=== PATIENT | male | born 1945 | race Hispanic/Latino ===

== ENCOUNTER 2019-08-14 14:09 | Emergency (ER) | payer MEDICARE, OTHER ==
[2019-08-14 15:02] LABS: Bilirubin,Urine NEG (Negative); Blood,Urine NEG (Negative); Color,Urine Yellow (Yellow); Protein,Urine <15 mg/dL mg/dL (Negative); Urobilinogen,Urine < 2.0 mg/dL (<2.0)
[2019-08-14 15:09] LABS: Alanine Aminotransferase 16 units/L (7-56); Albumin 4.1 g/dL (3.9-5); BUN/Creatinine Ratio 13; Blood Urea Nitrogen 10 mg/dL (9-20); Calcium 8.9 mg/dL (8.4-10.2); Hemolysis Index 10
[2019-08-14 15:14] LABS: Hematocrit 46.3 % (35.5-45.6); Hemoglobin 15.6 gm/dl (11.8-15.2); Mean Corpuscular HGB Conc 34 % (32-34); Mean Corpuscular Volume 97 fl (84-94); Platelet Count 273 K/mm3 (140-440); Red Blood Count 4.79 M/mm3 (3.65-5.03); Red Cell Distribution Width 14.4 % (13.2-15.2)
--- NOTE | 2019-08-14 15:21 | Emergency Department Report ---
ED Abdominal Pain HPI - General Chief Complaint: Abdominal Pain Stated Complaint: ABD/BACK PAIN Time Seen by Provider: 08/14/19 15:19 Source: patient Mode of arrival: Ambulatory Limitations: No Limitations - History of Present Illness Initial Comments: 74-year-old -[place] male patient with history of heart attack and hypertension complains of right flank pain, right lower abdominal pain, and right upper belly swelling 10 days. Patient states he was seen by his primary care doctor on Tuesday of last week and had a CT with contrast of his abdomen performed. Patient states CT results were normal and his primary care doctor which repeats the swelling of his abdomen to a pulled muscle including dysuria, hematuria, or urinary frequency. He also denies any history of kidney stones. Patient reports pain seems to worsen with meals and complains of being very gassy. He denies any fever, shortness of breath, or chest pain. MD Complaint: abdominal pain -: Gradual, days(s) (10) Location: RLQ Radiation: R flank Severity scale (0 -10): 4 Quality: aching Consistency: intermittent Improves With: rest Worsens With: eating, movement - Related Data Previous Rx's Medication Instructions Recorded Last Taken Type Aspirin EC 81 mg PO QDAY #30 tablet 10/13/15 Unknown Rx Lisinopril [Zestril TAB] 2.5 mg PO QDAY #30 tablet 10/13/15 Unknown Rx Metoprolol Xl [Metoprolol 25 mg PO QDAY #30 tablet 10/13/15 Unknown Rx SUCCINATE ER TAB] Pantoprazole [Protonix TAB] 40 mg PO QDAY #30 tablet 10/13/15 Unknown Rx Prasugrel [Effient] 10 mg PO QDAY #30 tablet 10/13/15 Unknown Rx methOCARBAMOL [Robaxin TAB] 750 mg PO Q8H PRN #21 tablet 08/14/19 Unknown Rx traMADol [Ultram 50 MG tab] 50 mg PO Q6HR PRN #10 tablet 08/14/19 Unknown Rx Allergies Allergy/AdvReac Type Severity Reaction Status Date / Time BLACK DYE AdvReac Rash Uncoded 06/25/15 14:31 ED Review of Systems ROS: Stated complaint: ABD/BACK PAIN Other details as noted in HPI Constitutional: denies: chills, diaphoresis, fever Respiratory: denies: cough, orthopnea, shortness of breath, wheezing Cardiovascular: denies: chest pain, palpitations, syncope Endocrine: no symptoms reported Gastrointestinal: as per HPI, abdominal pain. denies: nausea, vomiting Genitourinary: denies: urgency, dysuria, frequency, hematuria, discharge Musculoskeletal: denies: back pain, joint swelling, arthralgia Skin: denies: rash, lesions Neurological: denies: headache, abnormal gait ED Past Medical Hx - Past Medical History Previous Medical History?: Yes Hx Hypertension: Yes Hx Heart Attack/AMI: Yes (2014) - Surgical History Past Surgical History?: Yes Hx Coronary Stent: Yes (x 2) - Social History Smoking Status: Former Smoker Substance Use Type: None - Medications Home Medications: Home Medications Medication Instructions Recorded Confirmed Last Taken Type Aspirin EC 81 mg PO QDAY #30 tablet 10/13/15 Unknown Rx Lisinopril [Zestril TAB] 2.5 mg PO QDAY #30 tablet 10/13/15 Unknown Rx Metoprolol Xl [Metoprolol 25 mg PO QDAY #30 tablet 10/13/15 Unknown Rx SUCCINATE ER TAB] Pantoprazole [Protonix TAB] 40 mg PO QDAY #30 tablet 10/13/15 Unknown Rx Prasugrel [Effient] 10 mg PO QDAY #30 tablet 10/13/15 Unknown Rx methOCARBAMOL [Robaxin TAB] 750 mg PO Q8H PRN #21 tablet 08/14/19 Unknown Rx traMADol [Ultram 50 MG tab] 50 mg PO Q6HR PRN #10 tablet 08/14/19 Unknown Rx ED Physical Exam - General Limitations: No Limitations - Head Head exam: Present: atraumatic, normocephalic - Respiratory Respiratory exam: Present: normal lung sounds bilaterally. Absent: respiratory distress - Cardiovascular Cardiovascular Exam: Present: regular rate, normal rhythm, normal heart sounds. Absent: systolic murmur, diastolic murmur, rubs, gallop - GI/Abdominal GI/Abdominal exam: Present: soft, tenderness (right sided tenderness noted that appears to be more superficial on palpation ). Absent: distended (obvious RUQ distension noted on standing that reduces while lying down ), guarding, rebound, rigid, normal bowel sounds, organomegaly - Rectal Rectal exam: Present: deferred - Back Exam Back exam: Absent: tenderness, CVA tenderness (R) ED Course Vital Signs 10/01/19 10/01/19 14:24 17:13 Temperature 98.3 F 97.6 F Pulse Rate 63 55 L Respiratory 18 20 Rate Blood Pressure 129/70 Blood Pressure 131/74 [Left] O2 Sat by Pulse 98 99 Oximetry ED Medical Decision Making - Lab Data Result diagrams: 08/14/19 14:33 08/14/19 14:33 - Medical Decision Making 74 yo male pt here for abdominal and right flank pain x 10 days. Chemistry and gallbladder US wnl. CBC noted to have mild abnormalities-pt instructed to f/u with PCP for repeat CBC. CT abdomen constrast wnl last week per pt. Pt has hx of appendectomy. Noted distension in abdomen possibly due to a hernia given reduction upon lying supine. Pt does report hx of heavy lifting prior to start of symptoms. Recommend GI f/u. Will treat pain in side as muskuloskeletal. Discused strict return precautions in detail with pt who states understanding. Critical care attestation.: If time is entered above; I have spent that time in minutes in the direct care of this critically ill patient, excluding procedure time. ED Disposition Clinical Impression: Abdominal muscle strain, Abdominal distension Disposition: - TO HOME OR SELFCARE Is pt being admited?: No Condition: Stable Instructions: Muscle Strain (ED) Prescriptions: methOCARBAMOL [Robaxin TAB] 750 mg PO Q8H PRN #21 tablet PRN Reason: Muscle Spasm traMADol [Ultram 50 MG tab] 50 mg PO Q6HR PRN #10 tablet PRN Reason: Pain Referrals: [facility] MD CLIFFORD [Primary Care Provider] - 3-5 Days TYSHAWN HORTA MD [Staff Physician] - 2-3 Days
[2019-08-14 15:25] LABS: WBC,Urine < 1.0 /HPF (0.0-6.0)
[2019-08-14 16:12] LABS: Basophils % (Manual) 0 % (0.0-1.8); Total Cells Counted 100
[2019-08-14 16:13] LABS: Anisocytosis Few
[2019-08-14 17:14] VITALS: BP 131/74
--- NOTE | 2019-08-14 17:42 | Ultrasound Report ---
ULTRASOUND ABDOMEN, LIMITED (RIGHT UPPER QUADRANT) INDICATION: RUQ pain and swelling. COMPARISON: None available. FINDINGS: Pancreas: Visualized portion shows no significant abnormality. Liver: Normal. Gallbladder: Normal. Bile ducts: Normal. Common Bile Duct measures 5.6 mm. Free fluid: None. Additional Findings: None. IMPRESSION: Unremarkable right upper quadrant ultrasound. Signer Name: Cristi Harrington MD Signed: 08/14/2019 5:38 PM Workstation Name: [id number]
== END 2019-08-14 19:28 | disposition home or self-care (01) ==
LOC: ED 14:09
DX: S39.011A Strain of muscle, fascia and tendon of abdomen, initial encounter (principal); I11.0 Hypertensive heart disease with heart failure; I50.9 Heart failure, unspecified; Z91.041 Radiographic dye allergy status; Z79.82 Long term (current) use of aspirin; Z79.899 Other long term (current) drug therapy; Z95.0 Presence of cardiac pacemaker; Z87.891 Personal history of nicotine dependence; X58.XXXA Exposure to other specified factors, initial encounter; Y93.89 Activity, other specified; Y92.89 Other specified places as the place of occurrence of the external cause; Y99.8 Other external cause status
CPT/HCPCS: 36415; 76705; 80053; 81001; 83690; 85007; 85025; 99284

== ENCOUNTER 2022-03-22 15:52 | Emergency (ER) | payer MEDICARE, OTHER ==
[2022-03-22 16:00] VITALS: BP 154/79
--- NOTE | 2022-03-22 16:29 | XRay Report ---
CHEST 2 VIEWS INDICATION: Chest Pain. COMPARISON: 10/11/2015 FINDINGS: Support devices: None. Heart: Within normal limits. Lungs/pleura: No acute air space or interstitial disease. No pneumothorax. Additional findings: None. IMPRESSION: No acute findings. Signer Name: Zay Vick Jr, MD Signed: 03/22/2022 4:23 PM Workstation Name: [id number]
[2022-03-22 17:10] LABS: Basophils % (Auto) 0.6 % (0.0-1.8); Eosinophils # (Auto) 0.1 K/mm3 (0.0-0.4); Eosinophils % (Auto) 1.2 % (0.0-4.3); Hematocrit 45.5 % (35.5-45.6); Hemoglobin 15.3 gm/dl (11.8-15.2); Lymphocytes # (Auto) 1.7 K/mm3 (1.2-5.4); Lymphocytes % (Auto) 21.4 % (13.4-35.0); Mean Corpuscular HGB Conc 34 % (32-34); Mean Corpuscular Volume 97 fl (84-94); Monocytes # (Auto) 0.7 K/mm3 (0.0-0.8); Platelet Count 279 K/mm3 (140-440); Red Blood Count 4.69 M/mm3 (3.65-5.03); Red Cell Distribution Width 14.3 % (13.2-15.2)
[2022-03-22 17:21] LABS: Alanine Aminotransferase 28 units/L (7-56); Albumin 4.5 g/dL (3.9-5); BUN/Creatinine Ratio 14; Blood Urea Nitrogen 13 mg/dL (9-20); Calcium 9.4 mg/dL (8.4-10.2); Hemolysis Index 5
[2022-03-22 17:28] LABS: INR 0.93 (0.87-1.13)
[2022-03-22 17:29] LABS: Partial Thromboplastin Time 32.8 Sec. (24.2-36.6)
== END 2022-03-22 16:47 | disposition left against medical advice (07) ==
LOC: ED 15:52
DX: R07.89 Other chest pain (principal); Z53.21 Procedure and treatment not carried out due to patient leaving prior to being seen by health care provider
CPT/HCPCS: 36415; 71046; 80053; 84484; 85025; 85610; 85730; 93005